=== PATIENT | female | born 1960 | race Two or more races ===

== ENCOUNTER 2019-06-08 20:05 | Emergency (ER) | payer OTHER ==
[2019-06-08 20:14] VITALS: BP 154/93
--- NOTE | 2019-06-08 21:28 | UC ---
Hand/Wrist HPI - HPI Summary HPI Summary: 59-year-old female presents with complaints of left little finger pain after she accidentally shut her finger in the car door at approximately 11:00 this morning. Complains of pain over the DIP. States she has full range of motion. Denies any numbness or tingling. - History Of Current Complaint Chief Complaint: UCUpperExtremity Stated Complaint: FINGER INJURY Time Seen by Provider: 06/08/19 21:08 Hx Obtained From: Patient Pain Intensity: 3 - Allergies/Home Medications Allergies/Adverse Reactions: Allergies Allergy/AdvReac Type Severity Reaction Status Date / Time Penicillins Allergy Unknown Unknown Verified 06/08/19 20:14 Reaction Details Home Medications: Home Medications Acetaminophen [Acetaminophen Extra Strength] 1,000 mg PO ONCE PRN 06/08/19 [ History Confirmed 06/08/19] Aspirin 81 mg CHEW TAB* [Aspirin Low Dose TAB*] 81 mg PO DAILY 06/08/19 [ History Confirmed 06/08/19] C,E,Zinc,Copper 11/Eooff1k/Lut [Ocuvite Adult 50 Plus Softgel] 1 each PO [History] NIFEdipine CAP* [Procardia CAP*] 06/08/19 [History] PMH/Surg Hx/FS Hx/Imm Hx Cardiovascular History: Hypertension - Surgical History Surgical History: Yes Surgery Procedure, Year, and Place: placenta surgery - Family History Known Family History: Positive: Non-Contributory - Social History Occupation: Employed Full-time Lives: With Family Alcohol Use: Occasionally Substance Use Type: None Smoking Status (MU): Never Smoked Tobacco Review of Systems All Other Systems Reviewed And Are Negative: Yes Constitutional: Positive: Negative Skin: Positive: Other - Blood blister Respiratory: Positive: Negative Cardiovascular: Positive: Negative Gastrointestinal: Positive: Negative Genitourinary: Positive: Negative Motor: Negative: Weakness Neurovascular: Negative: Decreased Sensation Musculoskeletal: Positive: Other: - See HPI. Negative: Decreased ROM Neurological: Positive: Negative Is Patient Immunocompromised?: No Physical Exam - Summary Physical Exam Summary: GENERAL APPEARANCE: Well developed, well nourished, alert and cooperative, and appears to be in no acute distress. CARDIAC: Normal S1 and S2. No S3, S4 or murmurs. Rhythm is regular. There is no peripheral edema, cyanosis or pallor. Extremities are warm and well perfused. Capillary refill is less than 2 seconds. Peripheral pulses intact. LUNGS: Clear to auscultation without rales, rhonchi, wheezing or diminished breath sounds. ABDOMEN: Positive bowel sounds. Soft, nondistended, nontender. No guarding or rebound. No masses or hepatosplenomegally. MUSKULOSKELETAL: ROM intact to all extremities. No joint erythema or tenderness. Normal muscular development. Normal gait. EXTREMITIES: Mild tenderness over the DIP of the left little finger without gross deformity, ecchymosis, or edema. Full ROM. Circulation and sensation intact. SKIN: Skin normal color, texture and turgor. 0.5 cm intact blood blister to the harp aspect of the 5th left little finger over the middle phalanx. Triage Information Reviewed: Yes Vital Signs: Initial Vital Signs Temp 98.5 F 06/08/19 20:09 Pulse 68 06/08/19 20:09 Resp 16 06/08/19 20:09 BP 154/93 06/08/19 20:09 Pulse Ox 98 06/08/19 20:09 Vital Signs Reviewed: Yes Images Hands: 1 - 0.5 cm intact blood blister Diagnostics - Radiology No standard instances Radiology Interpretation Completed By: ED Physician - No evidence of fracture Hand/Wrist Course/Dx - Course Course Of Treatment: 59-year-old female presents with complaints of left little finger pain after she accidentally shut her finger in the car door at approximately 11:00 this morning. Complains of pain over the DIP. States she has full range of motion. Denies any numbness or tingling. Afebrile. Hypertensive otherwise vital signs stable. Patient had mild tenderness over the DIP of the left little finger without gross deformity, ecchymosis, or edema. Full ROM. Circulation and sensation intact. There was an intact 0.5 cm intact blood blister to the harp aspect of the 5th left little finger over the middle phalanx. Preliminary reading of the X-ray showed no acute fracture or dislocation. Reviewed results with the patient. She was placed in a finger splint by the RN. Recommending conservative treatment for a finger contusion including over- the-counter analgesics and RICE. She is to follow-up with her primary care provider in 7 days if symptoms do not improve. Anticipatory guidance warning symptoms were reviewed with the patient. Verbalizes understanding and agrees with plan of care. - Differential Dx/Diagnosis Differential Diagnosis/HQI/PQRI: Contusion, Dislocation, Fracture Provider Diagnosis: Contusion of left little finger Discharge ED - Sign-Out/Discharge Documenting (check all that apply): Patient Departure All imaging exams completed and their final reports reviewed: No Studies - Discharge Plan Condition: Stable Disposition: HOME Patient Education Materials: Contusion in Adults (ED) Referrals: Mary Mathis MD [Primary Care Provider] - 7 Days (If no improvement.) Additional Instructions: The x-ray performed in the clinic today showed no evidence of a fracture. The x -ray will be reviewed by the radiologist tomorrow we will contact you if they see anything we'll change her plan of care. Rest the hand as much as possible. Wear the splint that was applied in the clinic for support and protection until you are pain free. Apply ice to the affected area for 15-20 minutes at least 4 times a day to help with the pain and swelling. Elevate the hand to help reduce swelling. Take acetaminophen (Tylenol) or ibuprofen (Advil, Motrin) according to directions as needed for pain. Follow up with primary care provider in 7 days if symptoms do not improve. Seek immediate medical attention if you have severe pain not managed with pain medication, develop numbness or tingling in the finger, or have any worsening of symptoms. - Billing Disposition and Condition Condition: STABLE Disposition: Home - Attestation Statements Provider Attestation: This patient was not seen by me. I was available for consult. Chart reviewed. MARINA
== END 2019-06-08 21:46 | disposition home or self-care (01) ==
LOC: UCEAST 20:05
DX: S60.052A Contusion of left little finger without damage to nail, initial encounter (principal); I10 Essential (primary) hypertension; V49.9XXA Car occupant (driver) (passenger) injured in unspecified traffic accident, initial encounter; Y92.9 Unspecified place or not applicable; Z88.0 Allergy status to penicillin; Z79.899 Other long term (current) drug therapy
CPT/HCPCS: 73140; 99212; G0463

== ENCOUNTER 2023-09-10 07:45 | Inpatient (IN) ==
[2023-09-10 08:13] LABS: ABS Lymphocytes 1.7 10^3/uL (1.0-4.8); ABS Monocytes 0.4 10^3/uL (0.0-0.9); ABS Nucleated RBC 0.02 10^3/ul; Eosinophil % 0.1 %; Hemoglobin 15.5 g/dL (11.5-14.3); Lymphocyte % 21.3 %; Mean Corpuscular Hemoglobin 29.3 pg (27-33); Mean Corpuscular Hgb Conc 33.8 g/dL (31-36); Mean Corpuscular Volume 86.7 fL (80-97); Mean Platelet Volume 7.9 fL (7.5-11.2); Nucleated Red Blood Cells % 0.3 %/100WBC (0.0-0.8); Platelet Count 259 10^3/uL (150-450); Red Blood Count 5.31 10^6/uL (3.63-4.92); White Blood Count 8.2 10^3/uL (3.8-11.8)
[2023-09-10] MEDS: Iodixanol 320 (CONTRAST) 100 ML SDV IV ONE (08:19)
[2023-09-10] MEDS ORDERED: Flumazenil 0.5 mg/5 ml 0.1 MG/ML 5 ml VIAL IV PRN (08:50)
[2023-09-10] MEDS ORDERED: Naloxone 0.4 mg VIAL 0.4 mg/ml 1 ml VIAL IV PUSH PRN (08:50)
[2023-09-10 08:57] LABS: Albumin 4.7 g/dL (3.2-5.2); Albumin/Globulin Ratio 1.7 (1-3); Calcium 9.5 mg/dL (8.6-10.3); Creatinine, Serum 0.73 mg/dL (0.51-0.95); Globulin 2.8 g/dL (2-4); Potassium 3.1 mmol/L (3.5-5.0); Total Bilirubin 0.8 mg/dL (0.2-1.0); Total Protein 7.5 g/dL (6.4-8.9); eGFR CKD-EPI 91.8 (>60)
[2023-09-10] MEDS ORDERED: Lidocaine 1% MPF 5 ML VIAL ONE (08:57)
[2023-09-10] MEDS ORDERED: Heparin 2 UNITS/ML 1000 mls 3,000 ML IV ONE (08:57)
[2023-09-10] MEDS ORDERED: niCARdipine 0.1MG/ML IVPREMIX 20 MG/200 ML BAG IV ONE (08:57)
[2023-09-10] MEDS ORDERED: nitroGLYCERIN DRIP 25,000 MCG/250 ML BTL ONE (08:57)
[2023-09-10] MEDS ORDERED: Iohexol 350 (CONTRAST) 200 ML MDV IV ONE (08:57)
[2023-09-10] MEDS: Aspirin EC 325 mg TAB.EC PO ONE (09:01)
[2023-09-10] MEDS: Heparin 5000 UNITS/ML 1 mL VIAL IV PRN (09:02)
[2023-09-10] MEDS ORDERED: fentaNYL 100 mcg/2 ml 50 MCG/ML VIAL ONE ×2 (09:29→10:41)
[2023-09-10] MEDS ORDERED: Midazolam 5 mg/5 ml VIAL 1 mg/ml 5 ml VIAL (5 mg) ONE (09:29)
[2023-09-10] MEDS ORDERED: Heparin 1,000 UNIT/ML 10 ml (10,000 UNITS) CATHLAB/DIALYSIS ONE (09:37)
[2023-09-10 09:42] LABS: ABS Lymphocytes 1.5 10^3/uL (1.0-4.8); ABS Monocytes 0.4 10^3/uL (0.0-0.9); ABS Neutrophils 6.7 10^3/uL (1.5-7.6); Eosinophil % 0.1 %; Hematocrit 41.4 % (35-45); Hemoglobin 14.1 g/dL (11.5-14.3); Lymphocyte % 17.4 %; Mean Corpuscular Hemoglobin 29.3 pg (27-33); Mean Corpuscular Volume 86.2 fL (80-97); Mean Platelet Volume 8.2 fL (7.5-11.2); Platelet Count 238 10^3/uL (150-450); Red Cell Distribution Width 13.7 % (12-17); White Blood Count 8.7 10^3/uL (3.8-11.8)
[2023-09-10 09:44] LABS: HDL Cholesterol 64.7 mg/dL
[2023-09-10] MEDS ORDERED: Eptifibatide IV (Load dose) 2 MG/ML 10 ml VIAL ONE (09:57)
[2023-09-10] MEDS ORDERED: Iohexol 350 (CONTRAST) 100 ML PAK IV ONE (10:27)
[2023-09-10] MEDS ORDERED: Ondansetron 4 mg VIAL 2 MG/ML 2 ml VIAL IV PRN (10:51)
[2023-09-10] MEDS ORDERED: oxyCODONE/Acetamin 5/325 mg TAB PO PRN (10:51)
[2023-09-10] MEDS: KCL 20 MEQ/100 ML IVPREMIX 20 MEQ/100 ML BAG IV SCH (11:22)
[2023-09-10] MEDS: Heparin DRIP 25,000 UNITS BAG 25,000 UNITS/250 ML BAG IV SCH (11:24)
[2023-09-10] MEDS: fentaNYL 100 mcg/2 ml 50 MCG/ML VIAL IV SLOW PU ONE (11:27)
[2023-09-10] MEDS: Midazolam 10 mg/10 ml VIAL 1 mg/ml 10 ml VIAL (10 mg) IV SLOW PU ONE (11:28)
[2023-09-11 05:54] LABS: ABS Basophils 0.1 10^3/uL (0.0-0.1); ABS Lymphocytes 1.5 10^3/uL (1.0-4.8); ABS Monocytes 0.6 10^3/uL (0.0-0.9); ABS Neutrophils 6.1 10^3/uL (1.5-7.6); ABS Nucleated RBC 0.01 10^3/ul; Eosinophil % 0.2 %; Hematocrit 39.7 % (35-45); Hemoglobin 13.6 g/dL (11.5-14.3); Lymphocyte % 18.3 %; Mean Corpuscular Hemoglobin 29.3 pg (27-33); Mean Corpuscular Hgb Conc 34.2 g/dL (31-36); Mean Corpuscular Volume 85.6 fL (80-97); Nucleated Red Blood Cells % 0.1 %/100WBC (0.0-0.8); Platelet Count 243 10^3/uL (150-450); Red Blood Count 4.64 10^6/uL (3.63-4.92); Red Cell Distribution Width 13.8 % (12-17); White Blood Count 8.3 10^3/uL (3.8-11.8)
[2023-09-11 06:28] LABS: Calcium 8.8 mg/dL (8.6-10.3); Creatinine, Serum 0.71 mg/dL (0.51-0.95); Magnesium 2.2 mg/dL (1.9-2.7); Potassium 3.6 mmol/L (3.5-5.0); eGFR CKD-EPI 94.9 (>60)
[2023-09-11] MEDS: Potassium Chlor 20 meq TAB.ER PO ONE (08:41)
[2023-09-12 06:45] LABS: ABS Eosinophils 0.1 10^3/uL (0.0-0.5); ABS Monocytes 0.6 10^3/uL (0.0-0.9); ABS Neutrophils 4.4 10^3/uL (1.5-7.6); Eosinophil % 0.8 %; Hematocrit 38.1 % (35-45); Hemoglobin 13.1 g/dL (11.5-14.3); Lymphocyte % 28.4 %; Mean Corpuscular Hemoglobin 29.5 pg (27-33); Mean Corpuscular Hgb Conc 34.3 g/dL (31-36); Mean Corpuscular Volume 86.2 fL (80-97); Mean Platelet Volume 8.1 fL (7.5-11.2); Platelet Count 220 10^3/uL (150-450); Red Blood Count 4.42 10^6/uL (3.63-4.92); Red Cell Distribution Width 13.9 % (12-17); White Blood Count 7.1 10^3/uL (3.8-11.8)
[2023-09-12 07:04] LABS: Calcium 8.7 mg/dL (8.6-10.3); Creatinine, Serum 0.82 mg/dL (0.51-0.95); Magnesium 2.1 mg/dL (1.9-2.7); Potassium 3.8 mmol/L (3.5-5.0); eGFR CKD-EPI 79.8 (>60)
[2023-09-12 14:10] VITALS: BP 102/58
== END 2023-09-12 14:32 | disposition home or self-care (01) | DRG 322 ==
LOC: ED 07:45 → SUATTDRO 09:04 → EDHOLD 09:04 → CHICATH 09:11 → AA 09:20 → ICU 10:01 → MEDTELE 09-11 18:08
PROVIDERS: ADMIT Student in an Organized Health Care Education/Training Program; ATTEND Student in an Organized Health Care Education/Training Program